=== PATIENT | female | born 2000 | race African-American/Black ===

== ENCOUNTER 2022-08-03 21:08 | Emergency (ER) | payer OTHER ==
[~2022-08-03] VITALS: Ht 160 cm; Wt 52.2 kg
[2022-08-03 21:22] VITALS: BP 126/91
--- NOTE | 2022-08-03 21:29 | NUR ---
TO LOBBY FOLLOWING TRIAGE
--- NOTE | 2022-08-03 22:04 | NUR ---
PT TO BED 05 WITH PARENT
--- NOTE | 2022-08-03 22:21 | NUR ---
Dr. Freedman examining patient.
[2022-08-03] MEDS ORDERED: KETOROLAC 60 MG/2 ML VIAL IM ONE (22:25)
[2022-08-03] MEDS ORDERED: NAPR-1717 PO (22:30)
[2022-08-03] MEDS ORDERED: METH4TAB1 PO (22:30)
--- NOTE | 2022-08-03 22:33 | NUR ---
Patient discharged with v/s stable. Written and verbal after care instructions given and explained. Patient alert, oriented and verbalized understanding of instructions. Ambulatory with steady gait. All questions addressed prior to discharge. ID band removed. Patient advised to follow up with PMD. Rx of MEDROL and NAPROSYN given. Patient educated on indication of medication including possible reaction and side effects. Opportunity to ask questions provided and answered.
[2022-08-03 22:40] VITALS: BP 124/80
== END 2022-08-03 22:33 | disposition home or self-care (01) ==
LOC: MED 21:08
DX: R09.1 Pleurisy (principal); J45.909 Unspecified asthma, uncomplicated; I10 Essential (primary) hypertension; E10.9 Type 1 diabetes mellitus without complications; Z86.69 Personal history of other diseases of the nervous system and sense organs; Z79.899 Other long term (current) drug therapy; Z79.1 Long term (current) use of non-steroidal anti-inflammatories (NSAID)
CPT/HCPCS: 96372; 99283; J1885

== ENCOUNTER 2022-08-26 13:55 | Emergency (ER) | payer OTHER ==
[~2022-08-26] VITALS: Ht 160 cm; Wt 64.4 kg
[~2022-08-26 13:55] MED LIST: METH4TAB1 PO; NAPR-1717 PO
[2022-08-26 14:17] VITALS: BP 115/107; PULSE 99; RESP 16; TEMP 97; O2SAT 94
[2022-08-26] MEDS ORDERED: MORPHINE SULFATE 4 MG/ML SYR IM ONE (14:20)
[2022-08-26] MEDS ORDERED: ONDANSETRON 4 MG ODT PO ONE (14:20)
--- NOTE | 2022-08-26 14:30 | NUR ---
PATIENT WENT TO XRAY
[2022-08-26] MEDS ORDERED: IBUP-2218 PO (16:27)
[2022-08-26] MEDS ORDERED: HYDR-5080 PO (16:27)
[2022-08-26] MEDS ORDERED: ACET-8905 PO (16:38)
[2022-08-26 17:15] VITALS: BP 111/70; PULSE 74; RESP 17; O2SAT 97
== END 2022-08-26 17:17 | disposition home or self-care (01) ==
LOC: MED 13:55
DX: S82.142A Displaced bicondylar fracture of left tibia, initial encounter for closed fracture (principal); J45.909 Unspecified asthma, uncomplicated; E10.9 Type 1 diabetes mellitus without complications; I10 Essential (primary) hypertension; Z86.69 Personal history of other diseases of the nervous system and sense organs; Z79.899 Other long term (current) drug therapy; Z79.1 Long term (current) use of non-steroidal anti-inflammatories (NSAID); V00.131A Fall from skateboard, initial encounter; Y93.51 Activity, roller skating (inline) and skateboarding; Y92.331 Roller skating rink as the place of occurrence of the external cause; Y99.8 Other external cause status
CPT/HCPCS: 29505; 73562; 73700; 96372; 99285; J2270; Q0162